=== PATIENT | male | born 1960 ===

== ENCOUNTER 2019-11-19 16:49 | Inpatient (IN) | payer MEDICAID ==
[~2019-11-19] VITALS: Ht 180.3 cm; Wt 78.6 kg
[2019-11-19 17:00] VITALS: BP 110/83
[2019-11-19] MEDS ORDERED: LISINOPRIL-HCT1 EAC7 PO (17:22)
[2019-11-19 18:00] VITALS: BP 120/92
--- NOTE | 2019-11-19 19:45 | NUR ---
Andrei CARRILLO APN ON UNIT SEEING PATIENT. ORDERS RECIEVED FOR PT TO HAVE A STAT CT WITHOUT CONTRAST OF ABDOMEN NOW AND THEN ORDERED A STAT CONSULT WITH SURGERY FOR CVL PLACEMENT. NOTIFIED MEDICAL IMAGING AND HAVE CALLED ANSWERING SERVICE FOR CONSULT TO SURGERY/DR PRESTON APPLIANCE TECHNICIAN.
--- NOTE | 2019-11-19 19:56 | NUR ---
REPORT GIVEN TO LEONARD IN ER. PT TO GO TO CT THEN WILL BE TAKEN FROM THERE TO ROOM 1863.
[2019-11-19 20:09] LABS: HEMATOCRIT 47.5 % (42.0-54.0); MCH 31.5 pg (26.0-34.0); MCHC 31.6 g/dL (31.0-37.0); MCV 99.8 fL (80.0-100.0); MEAN PLATELET VOLUME 10.8 fL (7.4-10.4); PLATELET COUNT 70 10x3/uL (130-400); RBC 4.76 10x6/uL (4.20-6.10); RDW 14.5 % (11.5-14.5); WBC 11.9 10x3/uL (4.8-10.8)
[2019-11-19 20:15] VITALS: BP 108/93; BMI 22.9
--- NOTE | 2019-11-19 20:15 | NUR ---
REC'D PATIENT FROM MED II/CT. A/O X 4. SHALLOW BREATHING. O2 AT 4 L VIA NC. INCREASED OXYGEN TO 5L VIA NC. DENIES ANY PAIN. F/C PRESENT. CALL LIGHT IN REACH.
[2019-11-19 20:17] LABS: APTT 30.5 SECONDS (22.8-39.4); INR 1.18 (0.85-1.17)
[2019-11-19 20:30] LABS: LYMPHOCYTES 14 % (15-50); MONOCYTES 3 % (2-11); NEUTROPHILS 71 % (40-80); PLATELET ESTIMATE DECREASED
[2019-11-19 20:41] LABS: ALBUMIN 2.7 g/dL (3.4-5.0); ALKALINE PHOSPHATASE 383 U/L (30-120); ALT (SGPT) 127 U/L (10-68); BILIRUBIN - DIRECT 2.29 mg/dL (0.00-0.30); BILIRUBIN - INDIRECT 0.51 mg/dL (0.00-1.00); CALC OSMOLALITY 278 mosm/kg (275-300); CALCIUM 8.7 mg/dL (8.5-10.1); CARBON DIOXIDE 35.2 mmol/L (21.0-32.0); CHLORIDE - SERUM 97 mmol/L (98-107); CREATININE - SERUM 0.7 mg/dL (0.6-1.3); GLUCOSE 111 mg/dL (74-106); MAGNESIUM - SERUM 1.8 mg/dL (1.8-2.4); PHOSPHOROUS 3.6 mg/dL (2.5-4.9); POTASSIUM - SERUM 5.4 mmol/L (3.5-5.1); PROTEIN - SERUM 6.2 g/dL (6.4-8.2); SODIUM 137 mmol/L (136-145); UREA NITROGEN 25 mg/dL (7-18); eGFR NON AFRICAN AMERICAN > 90 mL/min (90-120)
[2019-11-19 20:42] LABS: CREATINE KINASE 1581 UL (21-232)
[2019-11-19 20:44] LABS: CKMB 12.8 U/L (0.0-3.6)
[2019-11-19 21:00] VITALS: BP 116/86
[2019-11-19 21:07] LABS: BILIRUBIN NEGATIVE (NEGATIVE); GLUCOSE NEGATIVE (NEGATIVE); KETONE NEGATIVE (NEGATIVE); NITRITE NEGATIVE (NEGATIVE); UROBILINOGEN 8 mg/dL (NORMAL)
[2019-11-19 21:09] LABS: BACTERIA MODERATE /hpf (NEGATIVE); EPITHELIAL CELLS 0-5 /hpf (0-5)
[2019-11-19 21:14] LABS: UDS - AMPHET NEGATIVE QUAL (NEGATIVE); UDS - BARB NEGATIVE QUAL (NEGATIVE); UDS - BENZO NEGATIVE QUAL (NEGATIVE); UDS - COCAINE NEGATIVE QUAL (NEGATIVE); UDS - OPIATE POSITIVE QUAL (NEGATIVE); UDS - PCP NEGATIVE QUAL (NEGATIVE); UDS - THC NEGATIVE QUAL (NEGATIVE)
[2019-11-19 22:00] VITALS: BP 118/66
--- NOTE | 2019-11-19 22:00 | NUR ---
RIGHT UPPER ARM, 18G STARTED X 1 ATTEMPT.
[2019-11-19 23:00] VITALS: BP 102/92
--- NOTE | 2019-11-19 23:00 | NUR ---
RE-ASSESSMENT COMPLETED. NO CHANGES SINCE LAST ASSESSMENT
[2019-11-20] VITALS (22 sets, daily range): BP systolic 79–135; BP diastolic 13–114; Ht 180.3 cm; Wt 78.6 kg
--- NOTE | 2019-11-20 01:00 | NUR ---
INDEPENDENT WITH REPOSITIONING.
[2019-11-20 02:50] LABS: BASOPHILS 0.4 % (0-2); EOSINOPHILS 1.1 % (0-7); HEMATOCRIT 44.3 % (42.0-54.0); HEMOGLOBIN 13.7 g/dL (13.5-17.5); IMMATURE GRANULOCYTES 5.4 % (0-5); LYMPHOCYTES 15.4 % (15-50); MCH 31.1 pg (26.0-34.0); MCHC 30.9 g/dL (31.0-37.0); MCV 100.7 fL (80.0-100.0); MEAN PLATELET VOLUME 9.9 fL (7.4-10.4); MONOCYTES 7.4 % (2-11); NEUTROPHILS 70.3 % (40-80); PLATELET COUNT 71 10x3/uL (130-400); RDW 14.7 % (11.5-14.5)
--- NOTE | 2019-11-20 03:00 | NUR ---
RE-ASSESSMENT COMPLETED. STARTED HAVING AFIB WITH RVR AT 140-150
[2019-11-20 03:05] LABS: CALC OSMOLALITY 277 mosm/kg (275-300); CALCIUM 8.8 mg/dL (8.5-10.1); CARBON DIOXIDE 36.5 mmol/L (21.0-32.0); CHLORIDE - SERUM 97 mmol/L (98-107); CREATININE - SERUM 0.8 mg/dL (0.6-1.3); GLUCOSE 101 mg/dL (74-106); PHOSPHOROUS 3.8 mg/dL (2.5-4.9); POTASSIUM - SERUM 5.4 mmol/L (3.5-5.1); SODIUM 136 mmol/L (136-145); UREA NITROGEN 30 mg/dL (7-18); eGFR NON AFRICAN AMERICAN > 90 mL/min (90-120)
--- NOTE | 2019-11-20 03:45 | NUR ---
AROUND 0300 NOTED ECG AFIB WITH RVR IN 140-150. CALLED BRITNEY ANDRE WITH DR. PRIEST, ORDER FOR CARDIO CONSULT. CALLED [facility] AND [facility] GARCIA REC'D.
--- NOTE | 2019-11-20 05:00 | NUR ---
HEART RATE DOWN TO 120'S NOW
--- NOTE | 2019-11-20 07:25 | NUR ---
AWAKES TO VERBAL STIMULI, VERY SLEEPY RETURNS TO SLEEP WHEN NOT STIMULATED. SKIN WARM AND DRY. MONITOR ATRIAL FIB RATE 130'S. IV RIGHT UPPER ARM INFUSING WITH CORDARONE GTT AT 1 MG. IV RIGHT FOREARM SALINE LOCK. BUCK CATH PATENT DRAINING CLEAR BERE URINE. KNOW WHERE HE IS AND STATES HE IS HERE FOR HIS ABD. DENIES PAIN OR SHORTNESS OF BREATH. PULSE OX IN LOW 90'S OXYGEN AT 4 LITERS PER NC.
--- NOTE | 2019-11-20 09:34 | NUR ---
DR. POLLARD HERE TALKED WITH PATEINT. REFUSING BREAKFAST PO MEDS TAKEN WITHOUT DIFFICUTLY
--- NOTE | 2019-11-20 11:00 | NUR ---
SLEEPY, AWAKES TO VERBAL STIMULI. GOOD RESPONSE TO LASIX IV. MOUTH BREATHING. DR. ALBRECHT HERE.
[2019-11-20 12:51] LABS: CALC OSMOLALITY 279 mosm/kg (275-300); CALCIUM 8.9 mg/dL (8.5-10.1); CARBON DIOXIDE 35.3 mmol/L (21.0-32.0); CHLORIDE - SERUM 96 mmol/L (98-107); CREATININE - SERUM 0.9 mg/dL (0.6-1.3); GLUCOSE 135 mg/dL (74-106); POTASSIUM - SERUM 5.1 mmol/L (3.5-5.1); SODIUM 135 mmol/L (136-145); UREA NITROGEN 36 mg/dL (7-18); eGFR NON AFRICAN AMERICAN > 90 mL/min (90-120)
--- NOTE | 2019-11-20 13:00 | NUR ---
RESTING COMFORTABLY NO DISTRESS. AWAKES EASILY, RETURNS TO SLEEP. MONITOR ATRIAL FIB RATE 120.
--- NOTE | 2019-11-20 14:25 | NUR ---
TO CT SCAN PER WHEEL CHAIR. WITH PORTABLE OXYGEN
--- NOTE | 2019-11-20 15:13 | NUR ---
RETURNED TO ROOM. LUNCH TRAY SERVED. SITTING ON SIDE OF BED EATING. UNSTEADY GAIT NOTED TRANSFERING FROM WHEEL CHAIR TO BED. FEEDING SELF
--- NOTE | 2019-11-20 16:02 | NUR ---
ATE 100% OF TRAY. RESTING IN BED NO DISTRESS
--- NOTE | 2019-11-20 19:00 | NUR ---
ASSESSMENT COMPLETED. SITTING UP ON SIDE OF BED. DENIES ANY NEEDS. EATING DINNER
--- NOTE | 2019-11-20 21:00 | NUR ---
INDEPENDENT WITH REPOSITIONING. DENIES ANY NEEDS
--- NOTE | 2019-11-20 23:00 | NUR ---
RE-ASSESSMENT COMPLETED. NO CHANGES SINCE LAST ASSESSMENT. CHG BATH GIVEN WITH COMPLETE LINEN CHANGE
[2019-11-21] VITALS (24 sets, daily range): BP systolic 102–136; BP diastolic 80–104
--- NOTE | 2019-11-21 01:00 | NUR ---
EYES CLOSED, BREATHING VIA MOUTH. WILL DESAT UNTIL REMINDED TO BREATHE THROUGH THE NOSE. C/O BACK PAIN, CHRONIC AND TAKES HYDROCODONE AT HOME. NO ORDER FOR ONE NOW. PLACED HEATED BLANKET FLAT ON BACK AND PATIENT STATED IT HELPED
--- NOTE | 2019-11-21 03:00 | NUR ---
EYES CLOSED. WAKES WITH TOUCH. BREATHING THROUGH MOUTH. STATES BACK PAIN IS SO MUCH BETTER
[2019-11-21 03:39] LABS: BASOPHILS 0.6 % (0-2); EOSINOPHILS 0.8 % (0-7); HEMATOCRIT 43.3 % (42.0-54.0); HEMOGLOBIN 13.3 g/dL (13.5-17.5); IMMATURE GRANULOCYTES 5.4 % (0-5); LYMPHOCYTES 21.9 % (15-50); MCH 30.6 pg (26.0-34.0); MCHC 30.7 g/dL (31.0-37.0); MCV 99.5 fL (80.0-100.0); MEAN PLATELET VOLUME 10.5 fL (7.4-10.4); MONOCYTES 5.9 % (2-11); NEUTROPHILS 65.4 % (40-80); PLATELET COUNT 76 10x3/uL (130-400); RBC 4.35 10x6/uL (4.20-6.10); RDW 14.5 % (11.5-14.5); WBC 12.3 10x3/uL (4.8-10.8)
[2019-11-21 04:07] LABS: PLATELET ESTIMATE DECREASED
--- NOTE | 2019-11-21 04:13 | NUR ---
REC'D CRITICAL OF AMMONIA 85 AND PCO2 OF 74.8. LEFT MESSAGE FOR DR. ROSS. WAITING RETURN CALL
[2019-11-21 04:24] LABS: INR 1.24 (0.85-1.17); PROTIME 15.5 SECONDS (11.6-15.0)
[2019-11-21 04:31] LABS: C-REACTIVE PROTEIN 10.9 mg/dL (0.0-0.9); CALC OSMOLALITY 276 mosm/kg (275-300); CARBON DIOXIDE 34.9 mmol/L (21.0-32.0); CHLORIDE - SERUM 98 mmol/L (98-107); CKMB 3.2 U/L (0.0-3.6); CREATINE KINASE 565 UL (21-232); CREATININE - SERUM 0.8 mg/dL (0.6-1.3); FERRITIN 10353 ng/mL (3-244); GLUCOSE 125 mg/dL (74-106); MAGNESIUM - SERUM 2.3 mg/dL (1.8-2.4); PHOSPHOROUS 2.2 mg/dL (2.5-4.9); POTASSIUM - SERUM 4.8 mmol/L (3.5-5.1); SODIUM 134 mmol/L (136-145); UREA NITROGEN 36 mg/dL (7-18); eGFR NON AFRICAN AMERICAN > 90 mL/min (90-120)
--- NOTE | 2019-11-21 04:39 | NUR ---
CALLED DR. ROSS FOR CRITICAL LAB. NO NEW ORDERS AT THIS TIME, RESPONSE WAS "OK, THANKS."
--- NOTE | 2019-11-21 06:54 | NUR ---
PATIENT DESAT TO 69%. GOT MARCO RT. PUT O2 AT 9L VIA HIGH FLOW NC. SAT CAME UP TO HIGH 90%. SITTING UP ON SIDE OF BED.
--- NOTE | 2019-11-21 07:30 | NUR ---
awakes with stimulation, knows where he is. iv right arm x 2 without redness or swelling. solo cath patent draining dark clear kevin urine. denies pain. sleepy returns to sleep when not stimulated. monitor atrial fib/flutter rate 120's.answers questions appriopiately. oximizer at 9 liters per nc. head of bed elevated 30 degrees.
--- NOTE | 2019-11-21 08:00 | NUR ---
patient upset he is npo, wants water to drink does care about any possible procedures. taking oxygen off, had to talk to patient about how bad he needs it.
--- NOTE | 2019-11-21 10:00 | NUR ---
tried to wean oxygen to 8 liters. patient pulse ox dropped into 70's. turn oxygen up to 10 liters. incentive spirometry done not able to get above 500ml, flutter valve attempted. resp therapy notified.
--- NOTE | 2019-11-21 11:00 | NUR ---
resting comfortably no distress
--- NOTE | 2019-11-21 12:00 | NUR ---
sitting on side of bed eating a regular diet.
--- NOTE | 2019-11-21 13:18 | NUR ---
ate well 75% of meal. feeds self. pleasant at moment. dr. herrera here. good urine output from lasix. monitor atrial fib flutter rate in 120's. oxygen at 10 liters.
--- NOTE | 2019-11-21 13:29 | NUR ---
daughter called update given. states to call her if patient is uncooperative,she will talk to him.
--- NOTE | 2019-11-21 14:34 | NUR ---
up on bedside. standing to relieve back discomfort. incentive spirometry done up to 750 ml.
--- NOTE | 2019-11-21 15:31 | NUR ---
DR. ROSS NOTIFIED OF D DIMER RESULTS. NO NEW ORDERS
--- NOTE | 2019-11-21 16:57 | NUR ---
DINNER TRAY SET UP AND SERVED. PATIENT TALKED WITH DAUGHTER ON HIS CELL PHONE. STATES TO LEAVE TRAY HE WILL EAT LATER. RESTING IN BED. HEAD OF BED ELEVATED 30 DEGREES. DRANK ALL OF MAG CIT[place].
--- NOTE | 2019-11-21 17:36 | NUR ---
DR. MAYNARD HERE TO SEE PATIENT.
--- NOTE | 2019-11-21 19:50 | NUR ---
LYING IN BED. HOB ELEVATED. ALERT AND ORIENTED X3. CONFUSED TO SITUATION. LETHARGIC BUT ABLE TO VOICE NEEDS. RESP IRREG, LABORED. O2 @ 10L/HFC. PROD COUGH WITH YELLOW SPUTUM NOTED. NS @ 5 MLHR INFUSING IN RT FOREARM. AMIODARONE DRIP INFUSING @ 16.7 ML/HR INFUSING IN RT UPPER ARM. TELEMTRY SHOWS AFIB WITH RATE OF 118. SCDS IN USE BILAT. EDEMA NOTED TO BLE. BUCK CATH PATENT AND DRAINING BERE URINE. DENIES NEEDS. SR ELVATED. CL IN REACH.
--- NOTE | 2019-11-21 21:45 | NUR ---
PLACED ON BIPAP PER RT. BIPAP @ 40% O2. HOB ELEVATED. CL IN REACH.
--- NOTE | 2019-11-21 23:16 | NUR ---
PULLED BIPAP OFF. REFUSING TO WEAR IT. EXPLAINED POSSIBILITY OF WORSENING CONDITION FROM NOT WEARING BIPAP. PLACED BACK ON O2 @ 10L/HFC. HOB ELEVATED. CL IN REACH.
--- NOTE | 2019-11-21 23:35 | NUR ---
REQUESTING TO PUT BIPAP BACK ON. BIPAP PLACED BACK ON PT. CL IN REACH.
[2019-11-22] VITALS (26 sets, daily range): BP systolic 103–139; BP diastolic 74–111
--- NOTE | 2019-11-22 01:00 | NUR ---
TOOK BIPAP OFF TO DRINK WATER. PT SAO2 DROPPED TO 83% IN THAT TIME. PLACED BACK ON BIPAP. SAO2 BACK UP TO 93%. CL IN REACH.
--- NOTE | 2019-11-22 02:30 | NUR ---
TOOK BIPAP OFF. WANTING WATER. WATER GIVEN AT THIS TIME. ATTEMPTED TO EXPLAIN WHY HE NEEDS TO STAY ON BIPAP BUT PT IS NOT RECEPTIVE TO LEARNING. BIPAP PLACED BACK ON PT. V/S STABLE. NO DISTRESS. CL IN REACH.
[2019-11-22 04:04] LABS: HEMATOCRIT 45.3 % (42.0-54.0); HEMOGLOBIN 13.9 g/dL (13.5-17.5); MCHC 30.7 g/dL (31.0-37.0); MCV 100.9 fL (80.0-100.0); MEAN PLATELET VOLUME 10.3 fL (7.4-10.4); PLATELET COUNT 75 10x3/uL (130-400); RBC 4.49 10x6/uL (4.20-6.10); RDW 14.9 % (11.5-14.5); WBC 11.6 10x3/uL (4.8-10.8)
[2019-11-22 04:09] LABS: APTT 30.8 SECONDS (22.8-39.4); INR 1.27 (0.85-1.17); PROTIME 15.8 SECONDS (11.6-15.0)
[2019-11-22 04:11] LABS: ANION GAP 2.3 mmol/L (8-16); CALCIUM 8.2 mg/dL (8.5-10.1); CARBON DIOXIDE 39.7 mmol/L (21.0-32.0); MAGNESIUM - SERUM 2.8 mg/dL (1.8-2.4)
[2019-11-22 04:13] LABS: CREATININE - SERUM 1.1 mg/dL (0.6-1.3)
--- NOTE | 2019-11-22 04:49 | NUR ---
RESTING WITH EYES CLOSED. BIPAP IN USE. NO DISTRESS. JUST NOW FALLING ASLEEP AFTER BEING UP ALL NIGHT. CL IN REACH. TELEMETRY SHOWS AFIB WITH UNCONTROLLED RATE OF 116. AMIODARONE DRIP INFUSING @ 16.7 MLHR.
--- NOTE | 2019-11-22 05:53 | NUR ---
LYING IN BED WITH BIPAP IN USE BUT PULLS MASK OFF FREQUENTLY TO DRINK WATER. IRRITABLE AND UNCOOPERATIVE AT TIMES. CL IN REACH. NO ACUTE DISTRESS.
--- NOTE | 2019-11-22 06:36 | NUR ---
AGITATED. CURSING NURSE. STATES, "I'M GOING TO THE [facility]. PUT THIS RAIL DOWN." PT TOOK BIPAP OFF. BIPAP PLACED BACK ON PT. ATTEMPTED TO EXPLAIN AGAIN WHY HE NEEDS TO WEAR IT AND THAT HE IS IN ICU BUT PT IS NOT RECEPTIVE TO LEARNING OR COOPERATING. BED ALARM ON FOR PT SAFETY.
[2019-11-22 07:18] LABS: LYMPHOCYTES 20 % (15-50); MONOCYTES 7 % (2-11); NEUTROPHILS 57 % (40-80); PLATELET ESTIMATE DECREASED
--- NOTE | 2019-11-22 09:57 | CN ---
PATIENT NAME:LANRE HUYNH MEDICAL RECORD: [id number] : 60 LOCATION:[id number] ADMIT DATE: 11/19/19 ACCOUNT: [id number] CONSULTING PHYSICIAN: LAWRENCE POLLARD MD REFERRING PHYSICIAN: JANIE PRIEST MD DATE OF CONSULTATION: 11/20/2019 HISTORY OF PRESENT ILLNESS: This is a 59-year-old gentleman transferred from [place] with a history of obstructive pulmonary disease, hypertension, admitted with about a 6 to 7 day history of progressive dyspnea on exertion, chest pain, shortness of breath. He by family report, he has been drinking heavily up until the last few days. No known history of atrial fibrillation by his report. We are asked to see him concerning his cardiovascular status. PAST MEDICAL HISTORY: Otherwise includes; 1. History of hypertension. 2. Obstructive pulmonary disease. MEDICATIONS: Include aspirin 81 every day, lisinopril 10/12.5 every day. ALLERGIES: Unknown. SOCIAL HISTORY: Lives in [place], smokes less than a pack a day, drinks heavily at times. Is able to take care of all his ADLs. REVIEW OF SYSTEMS: The patient reports easy bruising but reports no swollen glands. The patient reports no fever, no night sweats, no significant weight gain, no significant weight loss. No significant exercise tolerance. The patient reports no dry eyes, no irritation, no vision change. Patient reports no difficulty hearing and no ear pain. Patient reports no frequent nose bleeds or nose and sinus problems. Patient reports on arm pain on exertion. No shortness of breath while lying down. No history of heart murmur. Patient reports no cough, no wheezing or coughing up blood. Patient reports no abdominal pain, no vomiting. Normal appetite. No diarrhea and not vomiting blood. No nausea and no constipation. Patient reports no incontinence. No difficulty urinating. No hematuria. No increased frequency. Patient reports no muscle aches. No weakness, no arthralgias, no back pain. No swelling of the extremities. Patient reports no abnormal mole, no jaundice, no rashes. Reports no loss of consciousness. No weakness and no numbness. No seizures, dizziness, or headaches. The patient reports no depression, no sleep disturbance, feeling safe in a relationship. Patient reports on fatigue. Reports no runny nose or sinus pressure. No itching, no hives, and no frequent sneezing. PHYSICAL EXAMINATION: GENERAL: A middle-aged gentleman in no acute distress. VITAL SIGNS: Blood pressure 112/81, pulse 126, currently regular. HEENT: Normocephalic, atraumatic. NECK: No bruits noted. HEART: Regular, II/ systolic ejection murmur. LUNGS: Fair air excursion, few expiratory wheezes. ABDOMEN: Soft, nontender. EXTREMITIES: Pulses 2+ with no edema. DIAGNOSTIC DATA: EKG shows anterior ST-T segment changes. CONSULT REPORT [id number] LANRE HUYNH IMPRESSION AND PLAN: Atrial fibrillation intermittently, certainly could be a component of holiday heart and exacerbation of obstructive pulmonary disease. Given his symptomatology and abnormal ECG, we will check echocardiographic study, will need ischemic workup at some point. TRANSINT:[id number] Voice Confirmation ID: [id number] DOCUMENT ID: [id number] LAWRENCE POLLARD MD at 0957 CC: [id number] DICTATION DATE: 11/20/19 1006 RADIATION SAFETY OFFICER: 11/20/19 1309 ADM IN [facility] [address] [place] [address]
--- NOTE | 2019-11-22 09:57 | EC ---
PATIENT:LANRE HUYNH DATE OF SERVICE: 11/19/19 SEX: M MEDICAL RECORD: [id number] DATE OF : 60 LOCATION:[facility] AGE OF PATIENT: 59 ADMISSION DATE: 11/19/19 REFERRING PHYSICIAN: INTERPRETING PHYSICIAN: LAWRENCE POLLARD MD ECHOCARDIOGRAM REPORT ECHO CHARGES 4 ECHO COMPLETE Date: 11/20/19 CLINICAL DIAGNOSIS: CARDIOMEGALY/ELEVATED PRO-BNP/ TACHYCARDIA ECHOCARDIOGRAPHIC MEASUREMENTS (adult normal given) AC root (d.<3.7cm) 3.5 cm LV Septum d (<1.2 cm> 1.3 cm Valve Excursion 1.8 cm LV Septum (systole) 1.6 cm Left Atria (s.<4.0cm> 2.7 cm LVPW d(<1.2cm) 1.2 cm RV (d.<2.3cm) 4.6 cm LVPW (sytole) 1.5 cm LV diastole(<5.6CM) 4.7 cm MV E-F(>70mm/sec) cm LV systole 3.2 cm LVOT Diameter 2.3 cm MV exc.(>10mm) cm Est.ejection fraction (50-75%) % DOPPLER: LVIT cm/sec A 25.0 cm/sec E 80.0 cm/sec LA cm/sec RVSP 56.0 mmHg LVOT 57.0 cm/sec AOP1/2T m/s Asc. Ao 167 cm/sec RVOT 51.0 cm/sec RA cm/sec PA 80.0 cm/sec AV Gradient Peak 11.2 mmHg AV Mean 5.6 mmHg AV Area 1.6 cm MV Gradient Peak 3.0 mmHg MV Mean 1.2 mmHg MV Area cm COMMENTS: Program Evaluation Consultant: 1 MELLISA ADAM Office Executive: 3 Dr. Perdue TAPE# PACS Pericardial Effusion N DATE OF SERVICE: Adequate 2D, color flow imaging, spectral Doppler, and M-Mode. Borderline LVH. LV internal dimensions are normal. LV is globally hypokinetic with reduced EF, estimated EF 20% to 25%. Aortic valve is sclerosis without stenosis by Doppler interrogation. Left atrium is normal at 3.7 cm. Mitral valve shows no prolapse. Trace MR. Right-sided cardiac chambers appear upper limits of normal, mildly dilated. Moderate to severe TR with color flow imaging. ECHOCARDIOGRAM REPORT [id number] LANRE HUYNH TRANSINT:[id number] Voice Confirmation ID: [id number] DOCUMENT ID: [id number] LAWRENCE POLLARD MD at 0957 CC: [id number] DICTATION DATE: 11/21/1958 BELL VALET: 11/21/19 1316 ADM IN [place] [id number] [place] [id number]
--- NOTE | 2019-11-22 10:37 | NUR ---
PT TAKEN TO CT FOR THORACENTESIS.
--- NOTE | 2019-11-22 11:29 | NUR ---
PT BACK FROM SPECIALS. 300ML DRAINED DURING PARACENTESIS.
--- NOTE | 2019-11-22 11:55 | NUR ---
Nutrition follow-up: PT has been NPO for paracentesis PO intake has good at some meals; pt aggitated per nursing Labs reviewed BIPAP in use at times Will continue to provide food choices and honor food preferences. RDN following.
[2019-11-22 12:12] LABS: MACROPHAGES BF 20 %; NEUT - BF 19 %
--- NOTE | 2019-11-22 13:03 | NUR ---
ABG OBTAINED. PT BEING PLACED BACK ON BIPAP PER RT.
--- NOTE | 2019-11-22 15:28 | NUR ---
PT CONTINUES TO PULL BIPAP OFF AFTER EXPLAINING TO PT MULTIPLE TIMES THE NEED FOR IT. PT AGITATED AND CONFUSED. SOFT WRIST RESTRAINTS APPLIED TO PABLO WRISTS. VSS. WILL CONTINUE TO MONITOR. BIPAP IN PLACE AT 40%.
--- NOTE | 2019-11-22 19:00 | NUR ---
PATIENT RESTING IN BED WITH EYES CLOSED AND NO S/S OF DISTRESS. PATIENT ON BIPAP. BED IN LOWEST POSITION AND CALL LIGHT WITHIN REACH. WILL CONTINUE TO MONITOR.
--- NOTE | 2019-11-22 21:00 | NUR ---
ASSISTED PATIENT REPOSITIONING IN BED AND REMOVED RESTRAINTS. PATIENT REQUESTED HIS LEFT ARM NOT BE PLACED IN RESTRAINTS. PATIENT AGREED TO LEAVE BIPAP ON. I EXPLAINED TO THE PATIENT THAT IF HE REMOVES HIS BIPAP HIS RESTAINTS WOULD NEED TO BE PLACED TO LEFT ARM AGAIN. PATIENT VERBALIZED UNDERSTANDING. BED IN LOWEST POSITION AND CALL LIGHT WITHIN REACH. WILL CONTINUE TO MONITOR. ENCOURAGED PATIENT TO CALL IF HE HAS NEEDS.
--- NOTE | 2019-11-22 23:20 | NUR ---
REPORT RECIEVED AND ROUNDING COMPLETE. PATIENT LAYING IN BED IN HIGH FOWLERS, WEARING BIPAP AT TIME, DAY NURSE KANNAN RN STATES PATIENT RESTRAINT WERE TAKEN OFF AND PATIENT HAS KEPT BIPAP ON WITH NO PROBLEM WILL MONITOR FOR THIS. PATIENT HAS A RIGHT UPPER ARM PIV THAT IS PATENT AND RUNNING FLUIDS AT THIS TIME. NO S/SX OF DISTRESS AT THIS TIME. CALL LIGHT WITHIN REACH AND BED IN LOWEST LOCKED POSITION.
[2019-11-23] VITALS (23 sets, daily range): BP systolic 117–139; BP diastolic 87–112
--- NOTE | 2019-11-23 00:30 | NUR ---
FLACA FISCHER APN TO MAKE AWARE OF PATIENT'S HIGH BP, WILL FOLLOW NEW ORDERS PUT IN.
--- NOTE | 2019-11-23 02:30 | NUR ---
PAGED AMADO CEBALLOS TO ADVISE ON PATIENT'S BP, NO NEW ORDERS AT THIS TIME.
[2019-11-23 03:26] LABS: BASOPHILS 2.1 % (0-2); EOSINOPHILS 0.7 % (0-7); HEMATOCRIT 45.6 % (42.0-54.0); HEMOGLOBIN 13.9 g/dL (13.5-17.5); IMMATURE GRANULOCYTES 5.7 % (0-5); LYMPHOCYTES 30.5 % (15-50); MCH 30.7 pg (26.0-34.0); MCHC 30.5 g/dL (31.0-37.0); MCV 100.7 fL (80.0-100.0); MEAN PLATELET VOLUME 10.5 fL (7.4-10.4); MONOCYTES 7.1 % (2-11); NEUTROPHILS 53.9 % (40-80); PLATELET COUNT 66 10x3/uL (130-400); RBC 4.53 10x6/uL (4.20-6.10); RDW 15.1 % (11.5-14.5); WBC 13.2 10x3/uL (4.8-10.8)
[2019-11-23 04:03] LABS: CALC OSMOLALITY 285 mosm/kg (275-300); CALCIUM 8.3 mg/dL (8.5-10.1); CARBON DIOXIDE 36.3 mmol/L (21.0-32.0); CHLORIDE - SERUM 98 mmol/L (98-107); CREATININE - SERUM 0.9 mg/dL (0.6-1.3); GLUCOSE 122 mg/dL (74-106); MAGNESIUM - SERUM 3.1 mg/dL (1.8-2.4); PHOSPHOROUS 2.6 mg/dL (2.5-4.9); POTASSIUM - SERUM 5.1 mmol/L (3.5-5.1); SODIUM 137 mmol/L (136-145); UREA NITROGEN 43 mg/dL (7-18); eGFR NON AFRICAN AMERICAN > 90 mL/min (90-120)
--- NOTE | 2019-11-23 04:32 | NUR ---
PATIENT REFUSED BATH THIS MORNING HE STATES THAT WHEN HE CAN TAKE HIS BIPAP OFF HE WILL SHOWER. PATIENT HAS DONE WELL WITH LEAVING HIS BIPAP ON, ONLY TRYING TO TAKE IT OFF WHEN HE WANTS SOMETHING TO DRINK. CALL LIGHT WITHIN REACH AND BED IN LOWEST LOCKED POSITION.
--- NOTE | 2019-11-23 05:57 | NUR ---
PATIENT LAYING IN BED IN HIGH FOLWERS, BIPAP ON AND EYS CLOSED, NO DISTRESS NOTED, CALL LIGHT WITHIN REACH AND BED IN LOWEST LOCKED POSITION.
--- NOTE | 2019-11-23 07:00 | NUR ---
SHIFT REPORT RECEIVED PT RESTING COMFOTABLY, ON BIPAP AT THIS TIME. SHIFT ASSESSMENT COMPLETED SEE FLOWSHEET. PATIENT IS NOT RESTRAINED AT THIS TIME. BED AT LOWEST SETTING BED RAIL X2 - CLIR - VSS CPOC
[2019-11-23 07:10] LABS: CEA 14.8 ng/mL (0.0-4.7)
--- NOTE | 2019-11-23 08:30 | NUR ---
DR ADAM AT BEDSIDE, ABG AND EKG ORDERED AT THIS TIME. PATIENT PLACED ON NC 9L FOR AM MEDS. TOLERATING NC WELL. WILL CONTINUE TO CLOSELY MONITOR
--- NOTE | 2019-11-23 09:13 | NUR ---
RESULTS OF ABGS GIVEN TO CODEY ADAM WITH ORDERS TO WEAR BIPAP ON 4 HOURS AND OFF BIPAP AND ALL NIGHT EACH NIGHT
--- NOTE | 2019-11-23 11:15 | NUR ---
REASSESSMENT COMPLETED SEE FLOWSHEET
[2019-11-23 12:08] LABS: HEPATITIS C ANTIBODY 0.2 S/CO RAT (0.0-0.9)
--- NOTE | 2019-11-23 12:09 | NUR ---
DR ROSS AT BEDSIDE AND AWARE OF SEDATION STATUS
--- NOTE | 2019-11-23 13:56 | NUR ---
RT AT BEDSIDE, BIPAP PLACED BACK ON PATIENT - PATIENT STILL LETHARGIC, AROUSES TO VOICE, FOLLOWS COMMANDS, SLURRED SPEECH, SHALLOW RESPIRATIONS, VSS CPOC
--- NOTE | 2019-11-23 14:27 | NUR ---
PT RESTING COMFORTABLY ALL IV TUBING CHANGED PER POLICY VSS CPOC
--- NOTE | 2019-11-23 14:32 | NUR ---
REASSESSMENT COMPLETED SEE FLOWSHEET
--- NOTE | 2019-11-23 17:16 | MORECARE ---
CASE MANAGEMENT DISCHARGE SUMMARY PATIENT: LANRE HUYNH UNIT: [id number] ADM DATE: 11/19/19 AGE: 59 : 60 SEX: M ROOM/BED: D.2309 AUTHOR: ALLEN BRYANT PHYSICIAN: REFERRING PHYSICIAN: JANIE PRIEST MD DATE OF SERVICE: 11/23/19 Discharge Plan Patient Name: LANRE HUYNH [facility] [facility] 1960 Planned Disposition: Home Anticipated Discharge Date: Discharge Date: Expected LOS: Initial Reviewer: [email or web address] Initial Review Date: 11/23/2019 Generated: 11/23/19 6:16 pm Patient Name: LANRE HUYNH Page [id number] at 1716 All edits/amendments must be made on the electronic document DICTATION DATE: 11/23/191715 OXIDATION OPERATOR: PATO 11/23/191715 RPT#: [id number] DC DATE: STATUS: ADM IN [facility] [address] [place] [address] END OF REPORT
--- NOTE | 2019-11-23 17:27 | MORECARE ---
CASE MANAGEMENT DISCHARGE SUMMARY PATIENT: LANRE DINH UNIT: [id number] ADM DATE: 11/19/19 AGE: 59 : 60 SEX: M ROOM/BED: D.2309 AUTHOR: MANNY,DOC PHYSICIAN: REFERRING PHYSICIAN: JANIE PRIEST MD DATE OF SERVICE: 11/23/19 Discharge Plan Patient Name: LANRE DINH Facility: [facility]:[place] : 1960 Planned Disposition: Home Anticipated Discharge Date: Discharge Date: Expected LOS: Initial Reviewer: [email or web address] Initial Review Date: 11/23/2019 Generated: 11/23/19 6:27 pm Comments DCP- Discharge Planning Updated by [email or web address]: Polina Mcgrath on 11/23/19 4:[address] Patient Name: LANRE DINH Admission Status: ER Accout number: [id number] Admission Date: 11-19-2019 : 1960 Admission Diagnosis:PNEUMONIA, UNSPECIFIED ORGANISM Attending: CEM, Current LOS: 4 Anticipated DC Date: Planned Disposition: Home Primary Insurance: MEDICAID [place] Discharge Planning Comments: CM called and spoke with patient's daughter to complete initial dc planning assessment. CM educated patient's daughter on the CM role and verbal consent given by patient to complete assessment. Patient lived at home with family where he was independent with his care. At discharge patient's daughter plans on him discharging to her home. ([address] [place] [address] [place] [address]) CM discussed availability of home health, rehab services, and medical equipment. He has been using home 02 concentrator (unknown if it was his or someone else's).He has a nebulizer that he was taking albuterol updrafts more often than ordered per daughter. SHIRIN for no preference on Home health company if needed. [facility] medical equipment. for 02 needs. He will need walk test if 02 is required at discharge. Patient's daughter denied known discharge needs at this time. CM will continue to follow and will assist as needed with dc plans/needs. Special Education Supervisor: Polina Mcgrath DCPIA - Discharge Planning Initial Assessment Updated by [email or web address]: Polina Mcgrath on 11/23/19 5:19 pm * PCP AMINAH BRADY * Pharmacy [facility] - * Preadmission Environment Home with Family * ADLs Independent * Other Equipment 02 concentrator, nebulizer * List name and contact numbers for known caregivers / representatives who currently or will assist patient after discharge: Marilin Iniguez -daughter POA - [phone] Shirin Dinh - son - [phone] * Verbal permission to speak to the caregivers and representatives has been obtained from the patient. N/A * Community resources currently utilized None * Additional services required to return to the preadmission environment? No * Can the patient safely return to the preadmission environment? Yes * Has this patient been hospitalized within the prior 30 days at any hospital? No Last DP export: 11/23/19 4:16 p Patient Name: LANRE DINH Page [id number] at 1727 All edits/amendments must be made on the electronic document DICTATION DATE: 11/23/191726 DENTAL SERVICES DIRECTOR: PATO 11/23/191726 RPT#: [id number] DC DATE: STATUS: ADM IN [facility] [address] [place] [address] END OF REPORT
--- NOTE | 2019-11-23 17:46 | NUR ---
PT ON 9L NC - STILL LETHARGIC BUT ABLE TO FOLLOW COMMANDS, VSS CPOC
--- NOTE | 2019-11-23 19:00 | NUR ---
HEAD TO TOE ASSESSMENT COMPLETED. PATIENT SOMULENT. AWAKES MOMENTS DURING STUMULATION. UNABLE TO ANSWER QUESTIONS WITHOUT DRIFTING BACK TO SLEEP. VSS. AWARE. WILL CONTINUE TO MONITOR.
--- NOTE | 2019-11-23 21:00 | NUR ---
REPOSTIONED FOR COMFORT. DAUGHTER CALLED FOR UPDATE. PROVIDED UPDATED AND ANSWERED QUESTIONS. FAMILY TO BRING IN PT PERSONAL PHONE SO PT CAN COMMUNICATE WITH FAMILY. PT CONTINUES TO BE LETHARGIC. PT ABLE TO TAKE PO MEDICATION WITHOUT ANY S/S OF ASPIRATION. PROVIDED SIPS OF WATER.
--- NOTE | 2019-11-23 22:00 | NUR ---
PT O2 AT 77-85%. APPLIED BIPAP AT 40%. O2 TOOK 5 MINITES TO RECOVER. WILL CONTINUE TO MONITOR.
--- NOTE | 2019-11-23 23:00 | NUR ---
HEAD TO TOE ASSEMENT COMPLETED. REPOSITIONED.
[2019-11-24] VITALS (22 sets, daily range): BP systolic 109–145; BP diastolic 73–130
--- NOTE | 2019-11-24 01:00 | NUR ---
REPOSITIONED FOR COMFORT. PT RESTING WITH EYES CLOSED. DENIES ANY NEEDS AT THIS TIME.
--- NOTE | 2019-11-24 03:00 | NUR ---
HEAD TO TOE ASSESSMENT COMPLETED. RESPOSITIONED FOR COMFORT.
[2019-11-24 04:05] LABS: HEMATOCRIT 41.5 % (42.0-54.0); HEMOGLOBIN 12.8 g/dL (13.5-17.5); MCH 30.8 pg (26.0-34.0); MCHC 30.8 g/dL (31.0-37.0); MCV 99.8 fL (80.0-100.0); MEAN PLATELET VOLUME 10.5 fL (7.4-10.4); PLATELET COUNT 65 10x3/uL (130-400); RBC 4.16 10x6/uL (4.20-6.10); RDW 15.1 % (11.5-14.5); WBC 9.2 10x3/uL (4.8-10.8)
[2019-11-24 04:16] LABS: CALC OSMOLALITY 283 mosm/kg (275-300); CARBON DIOXIDE 38.5 mmol/L (21.0-32.0); CHLORIDE - SERUM 98 mmol/L (98-107); CREATININE - SERUM 0.7 mg/dL (0.6-1.3); GLUCOSE 119 mg/dL (74-106); MAGNESIUM - SERUM 2.7 mg/dL (1.8-2.4); PHOSPHOROUS 2.1 mg/dL (2.5-4.9); POTASSIUM - SERUM 4.5 mmol/L (3.5-5.1); SODIUM 137 mmol/L (136-145); UREA NITROGEN 38 mg/dL (7-18); eGFR NON AFRICAN AMERICAN > 90 mL/min (90-120)
[2019-11-24 04:41] LABS: LYMPHOCYTES 40 % (15-50); MONOCYTES 1 % (2-11); NEUTROPHILS 52 % (40-80); PLATELET ESTIMATE DECREASED
--- NOTE | 2019-11-24 05:00 | NUR ---
REPOSITIONED FOR COMFORT. PT DENIES ANY NEEDS AT THIS TIME.
--- NOTE | 2019-11-24 09:20 | NUR ---
Nutrition follow-up: Diet advanced to regular with po intake ~25% of meals Labs reviewed WT: 180# Pt on BIPAP, 4 hours on/4 hours off +BM Will provide food choices and honor food preferences. Will offer nutritional supplements RDN following.
--- NOTE | 2019-11-24 12:05 | NUR ---
CONTACTED PT FAMILY ABOUT FURTHER CARE DIRECTED BY . FAMILY WILL COME TO A CONCULSION AND NOTIFY ME. PT IS ON BIPAP AND NOT GETTING ANY BETTER.
[2019-11-24 14:08] LABS: PROCALCITONIN 5.75 ng/mL (0.00-0.08)
--- NOTE | 2019-11-24 19:30 | NUR ---
HOSPICE NURSE AT THE PTS BEDSIDE. PT ALERT AND ORIENTED. PT STATES THAT HE DOES NOT WANT TO BE ON THE VENTILATOR. PTS SISTER CALLED AND PROVIDED THE PASSWORD. SHE WAS UPDATED THAT THE PT IS A DNR AND DNI PER THE PATIENTS WISHES. SHE SPOKE WITH THE PATIENT AND THE SISTER STATED THAT HE IS OK TO BE PUT ON THE VENTILATOR. PER THE DAY SHIFT, THEY SPOKE WITH JESSICA CHEUNG AND MADE THE DNR DNI STATUS. I THEN CALLED JESSICA AND SHE SAID IT IS WHAT EVER THE PT WANTS. I SPOKE WITH THE PATIENT IN LENGTH ABOUT BEING PLACED ON THE VENTILATOR AND BEING MADE A FULL CODE STATUS. THE PATIENT UNDERSTOOD COMPLETLY. THE PT HAS EVEN AND UNLABORED RESPIRATION AT THIS TIME. I ASKED IF HE WAS OK WITH BEING PLACED ON THE BIPAP FOR NOW AND HE AGREED.
--- NOTE | 2019-11-24 22:40 | NUR ---
AMADO IN THE UNIT AND UPDATE WITH THE CODE STATUS CHANGE AND THE PATIENT IS OK TO BE INTUBATED IF NEEDED. OBTAIN ABG.
--- NOTE | 2019-11-24 23:00 | NUR ---
PT CALM AND COOPERATIVE. PT WEARING BIPAP. VSS. WILLC ONT POC.
--- NOTE | 2019-11-24 23:01 | NUR ---
AMAOD CEBALLOS IN THE UNIT AND MADE AWARE OF THE CONVERSATION I HAD WITH THE SISTER, DAUGHTER AND THE PT. I WAS PRESENT WITH AMADO CEBALLOS AND THE PT IS STILL A&O AND ABLE TO MAKE HIS DECISIONS. PT STATES THAT HE NOW WISHS TO REMAIN A DNR AND DOES NOT WISH TO BE INTUBATED. PT CODE STATUS WILL REMAIN A DNR AND DNI PER THE PATIENTS WISHES. JESSICA CHEUNG CALLED AND NOTIFIED OF THE PATIENTS WISHES. JESSICA IS IN AGREEMENT AND WANTS TO BE MADE AWARE OF ANY CHANGE IN THE PATIENTS CONDITION. PT IS ON THE BIPAP AND VITAL SIGNS ARE STABLE. WILL CONT POC.
[2019-11-25] VITALS (23 sets, daily range): BP systolic 92–153; BP diastolic 67–108
--- NOTE | 2019-11-25 01:00 | NUR ---
PT RESTING. VSS. WILL CONT BIPAP AND POC.
--- NOTE | 2019-11-25 03:00 | NUR ---
REASSESSMENT COMPLETED. VSS. WILL CONT POC
--- NOTE | 2019-11-25 05:00 | NUR ---
PT WEARING BIPAP AND COOPERATVIE. CALL LIGHT IN [facility]. WILL CONT POC.
--- NOTE | 2019-11-25 06:00 | NUR ---
PT REQUESTED TO HAVE WATER AND ICE. REMOVED BIPAP AND APPLIED O2 AT 5 LITERS. INSTRUCTED PT TO DEEP BREATHE. ADMINISTERED AM MEDS AND PROVIDED WATER/ICE PER REQUEST. PT DID NOT TOLERATE BEING OFF BIPAP. 02 DECREASED TO 85 PERCENT. REAPPLIED BIPAP AT 40%. PROVIDED EDUCATION ON THE USE OF EQUIPMENT, AND O2 REQUIREMENTS. PATIENTS STATES "IF I GOTTA WEAR THIS MASK I NEED SOMETHING LIKE XANEX OR MY SOMAS. PROVIDED EDUCATION ABOUT HOW THOSE MEDICATIONS AFFECTED HER BREATHING. REPOSITIONED FOR COMFORT.
--- NOTE | 2019-11-25 19:00 | NUR ---
REPORT REC'D FROM DAY RN, PT'S CARE ASSUMED. ASSESSMENT COMPLETED.SEE FLOWSHEETS FOR ALL FINDIGNS. PT AWAKE AND ALERT X3, C/O DISCOMFORT AT ABD REGION, REPOSITIONED FOR COMFORT, WAGES IN USE FOR SUPPORT. AFIB CONT ON MONITOR WITH HR AT 78. LUNG SOUNDS DIMINISHED TO LLB, UNLABORED ON BIPAP AT 40%FIO2. PPP. CALL LIGHT IN REACH. CONT TO MONITOR.
--- NOTE | 2019-11-25 21:00 | NUR ---
SCHEDULED MEDS GIVEN PER ORDER. PT RUPAL WELL. C/O NAUSEA AFTER TAKING MEDS AND DRINK LACTULOSE. ZOFRAN 4MGIVP GIVEN PER ORDER. CPOC.
--- NOTE | 2019-11-25 23:00 | NUR ---
REASSESSMENT COMPLETED PER FLOWSHEETS. PT RESTING QUIETLY ON BIPAP WITHOUT ANY DISTRESS AT THIS TIME. VSS. CPOC.
[2019-11-26] VITALS (24 sets, daily range): BP systolic 102–138; BP diastolic 67–102
--- NOTE | 2019-11-26 01:00 | NUR ---
PT RESTING QUIETLY WITHOUT DISTRESS. VSS. NO NEEDS VOICES AT THIS TIME. CPOC.
--- NOTE | 2019-11-26 03:00 | NUR ---
REASSESSMENT COMPLETED PER FLOWSHEETS. PT ON BIPAP WITHOUT DISTRESS. VSS. NO ACUTE CHANGES NOTED IN PT'S STATUS AT THIS TIME. CPOC.
--- NOTE | 2019-11-26 04:00 | NUR ---
I&O COMPLETED AND CHARTED TO FLOWSHEET.
--- NOTE | 2019-11-26 12:45 | NUR ---
Nutrition Follow-up: Ate well last night per chart. Experienced nausea overnight after meds and Lactulose. Diet: Regular Wt: 189# (11/25); 180# (11/23); 186.2# (11/21) Last BM: 11/22 per chart Labs noted: Glu 119, Ca 8.0, PO4 2.1, Mg 2.7 Meds noted: Solumedrol, Lactulose, Lasix, Albumin, Zofran, banana bag @ 125 -Encourage PO intake and honor food preferences. -Offer nutrition supplements. -Monitor wt. -RD following.
--- NOTE | 2019-11-26 19:40 | NUR ---
RECEIVED CARE OF PT, ASSESSMENT PER FLOWSHEET. BIPAP MASK IN PLACE, PT LETHARGIC BUT AROUSES TO VOICE, PULLED UP IN BED AND SUPPORTED WITH PILLOWS.
--- NOTE | 2019-11-26 21:55 | NUR ---
PT RESTING IN BED WITH BIPAP MASK IN PLACE, VSS, CONT TO MONITOR.
--- NOTE | 2019-11-26 23:20 | NUR ---
REASSESSMENT PER FLOWSHEET, NO SIGNIFICANT ACUTE CHANGES NOTED AT THIS TIME. SMALL BREAK FOR ORAL CARE DONE, SIGNIFICANT O2 DESAT NOTED EVEN WITH MINIMAL TIME. WILL MONITOR CLOSELY.
[2019-11-27] VITALS (22 sets, daily range): BP systolic 106–142; BP diastolic 85–101
--- NOTE | 2019-11-27 01:50 | NUR ---
ORAL CARE PROVIDED, PT TOLERATED VERY SHORT TIME OFF BIPAP, STILL 60% FIO2.
--- NOTE | 2019-11-27 03:00 | NUR ---
REASSESSMENT PER FLOWSHEET, NO SIGNIFICANT CHANGES NOTED AT THIS TIME. REMAINS SR ON CM, CONT POC.
--- NOTE | 2019-11-27 05:14 | NUR ---
PT RESTING IN BED WITH EYES CLOSED, VSS, CONT POC.
--- NOTE | 2019-11-27 07:23 | NUR ---
PT LYING IN BED RESTING AT THIS TIME, BIPAP IN PLACE. VSS. NO ACUTE DISTRESS NOTED. PT LETHARGIC BUT ORIENTED X 4; ABLE TO ANSWER ALL ORIENTATION QUESTIONS APPROPIATELY. WILL CONTINUE PLAN OF CARE.
--- NOTE | 2019-11-27 09:22 | NUR ---
PER DR ADAM, ORDER LABS THIS AM SINCE PT HAS NOT HAD LABS DRAWN SINCE 11/23. BIPAP IN PLACE. VSS. NO ACUTE DISTRESS NOTED. WILL CONTINUE PLAN OF CARE.
[2019-11-27 09:43] LABS: HEMATOCRIT 41.5 % (42.0-54.0); HEMOGLOBIN 12.3 g/dL (13.5-17.5); MCH 30.1 pg (26.0-34.0); MCHC 29.6 g/dL (31.0-37.0); MCV 101.5 fL (80.0-100.0); MEAN PLATELET VOLUME 9.8 fL (7.4-10.4); RBC 4.09 10x6/uL (4.20-6.10); RDW 15.4 % (11.5-14.5); WBC 9.5 10x3/uL (4.8-10.8)
[2019-11-27 09:46] LABS: PLATELET COUNT 38 10x3/uL (130-400)
[2019-11-27 10:03] LABS: ALBUMIN 2.7 g/dL (3.4-5.0); ALKALINE PHOSPHATASE 377 U/L (30-120); ALT (SGPT) 131 U/L (10-68); BILIRUBIN - TOTAL 3.19 mg/dL (0.2-1.3); CALCIUM 8.1 mg/dL (8.5-10.1); CHLORIDE - SERUM 96 mmol/L (98-107); CREATININE - SERUM 0.5 mg/dL (0.6-1.3); GLUCOSE 105 mg/dL (74-106); POTASSIUM - SERUM 4.9 mmol/L (3.5-5.1); PROTEIN - SERUM 5.2 g/dL (6.4-8.2); UREA NITROGEN 31 mg/dL (7-18); eGFR NON AFRICAN AMERICAN > 90 mL/min (90-120)
[2019-11-27 10:14] LABS: EOSINOPHILS 1 % (0-7); LYMPHOCYTES 15 % (15-50); MONOCYTES 5 % (2-11); NEUTROPHILS 77 % (40-80); PLATELET ESTIMATE DECREASED
[2019-11-27 10:24] LABS: CALC OSMOLALITY 276 mosm/kg (275-300); SODIUM 135 mmol/L (136-145)
[2019-11-27 10:44] LABS: CARBON DIOXIDE 39.4 mmol/L (21.0-32.0)
--- NOTE | 2019-11-27 10:47 | NUR ---
PT REQUESTED SIPS OF WATER, BIPAP REMOVED FOR A FEW MINUTES, 15L HIGH FLOW NC PLACED. INITIALLY OXYGEN SATURATION TRENDED 93% WITH GOOD WAVEFORM TO OXYGEN SAT MONITOR. PT TOLERATED A FEW SIPS OF WATER WITHOUT ANY S/S ASPIRATION. PT THEN REQUESTED A DRINK OF MILK, SIPS OF MILK GIVEN TO PT WITH SOME COUGHING NOTED, HOWEVER WITH PRODUCTIVE SPUTUM OF THICK LIGHT CLEAR. OXYGEN SATURATION DECREASED TO 88% ON 15L HIGH FLOW. BIPAP PLACED BACK TO PT. WILL CONTINUE TO CLOSELY OBSERVE.
--- NOTE | 2019-11-27 11:13 | NUR ---
SPOKE WITH PTS DAUGHTER, UPDATES PROVIDED. NO ACUTE DISTRESS NOTED. WILL CONTINUE PLAN OF CARE
--- NOTE | 2019-11-27 11:25 | NUR ---
NOT TOLERATING PO SIPS OF WATER OF MEDS. PO MEDS HELD. DR ROSS NOTIFIED OF THIS.
--- NOTE | 2019-11-27 11:56 | NUR ---
DR ROSS NOTIFIED OF LOW PLATELET LEVEL AND THAT PT IS UNABLE TO TOLERATE PO MEDS. PHYSICIAN STATED HE WOULD PLACE ORDERS.
--- NOTE | 2019-11-27 12:14 | NUR ---
RESULTS GIVEN TO DR ADAM OVER TELEPHONE VERBAL ORDER FOR PT TO WEAR BIPAP 4 ON AND 4 OFF TOLERATED TO MAINTAIN SPO2>90.
--- NOTE | 2019-11-27 16:06 | NUR ---
CHG BATH PROVIDED AT THIS TIME WITH TOTAL LINEN CHANGE. VSS. NO ACUTE DISTRESS NOTED. WILL CONTINUE PLAN OF CARE.
--- NOTE | 2019-11-27 21:00 | NUR ---
ANSWERED PTS CALL LIGHT REQUESTING SOMETHING TO EAT INFORMED DUE TO BIPAP AND TROUBLE SWALLOWING TODAY NPO NOW
--- NOTE | 2019-11-27 21:02 | NUR ---
PT DAUGHTER, JESSICA CALLED-PASSWORD PROVIDED AND UPDATE GIVEN. ALL QUESTIONS ANSWERED, MESSAGE DELIVERED TO PT PER DAUGHTER REQUEST.
--- NOTE | 2019-11-27 22:46 | NUR ---
ANSWERED CL PT REQUESTING SOMETHING TO EAT OR DRINK INFORMED AGAIN UNABLE TO TOLERATE OFF BIPAP SATS DROPPED TO 80'S AND PT HAD TROUBLE SWALLOWING AND COUGHING AFTER GIVEN WATER TODAY PER DAY SHIFT REPORT
[2019-11-28] VITALS (24 sets, daily range): BP systolic 98–130; BP diastolic 75–97
--- NOTE | 2019-11-28 01:15 | NUR ---
ANSWERED CALL LIGHT PT REQUESTING FOOD AGAIN INFORMED AGAIN OF ASPIRATION AND NPO STATUS ORAL CARE PROVIDED
--- NOTE | 2019-11-28 03:00 | NUR ---
REASSESSMENT COMPLETE CPOC
--- NOTE | 2019-11-28 04:01 | NUR ---
COMPLETE LINEN CHANGE MEPILEX APPLIED TO EXCORIATION ON BUTTOCKS
--- NOTE | 2019-11-28 05:00 | NUR ---
PT WANTS TO GO HOME DOES NOT WANT HOSPICE. WANTS TO GO HOME
[2019-11-28 08:02] LABS: HEMOGLOBIN 11.2 g/dL (13.5-17.5); MCH 30.4 pg (26.0-34.0); MCHC 30.3 g/dL (31.0-37.0); MCV 100.5 fL (80.0-100.0); MEAN PLATELET VOLUME 10.5 fL (7.4-10.4); RBC 3.68 10x6/uL (4.20-6.10); WBC 8.6 10x3/uL (4.8-10.8)
[2019-11-28 08:07] LABS: PLATELET COUNT 46 10x3/uL (130-400)
--- NOTE | 2019-11-28 08:26 | NUR ---
LYING IN BED AT THIS TIME, BIPAP IN PLACE. PT LETHARGIC, HOWEVER ORIENTED X 4, ANSWERS ALL QUESTIONS APPROPIATELY. PT DENIES ANY CURRENT CONCERNS OR NEEDS. VSS. WILL CONTINUE PLAN OF CARE.
[2019-11-28 08:55] LABS: ALBUMIN 2.6 g/dL (3.4-5.0); ALKALINE PHOSPHATASE 324 U/L (30-120); ALT (SGPT) 114 U/L (10-68); BILIRUBIN - TOTAL 3.18 mg/dL (0.2-1.3); CALC OSMOLALITY 279 mosm/kg (275-300); CALCIUM 7.9 mg/dL (8.5-10.1); CHLORIDE - SERUM 97 mmol/L (98-107); CREATININE - SERUM 0.4 mg/dL (0.6-1.3); GLUCOSE 112 mg/dL (74-106); POTASSIUM - SERUM 5.1 mmol/L (3.5-5.1); PROTEIN - SERUM 4.9 g/dL (6.4-8.2); SODIUM 136 mmol/L (136-145); UREA NITROGEN 31 mg/dL (7-18); eGFR NON AFRICAN AMERICAN > 90 mL/min (90-120)
[2019-11-28 08:55] LABS: LYMPHOCYTES 20 % (15-50); MONOCYTES 1 % (2-11); NEUTROPHILS 79 % (40-80); PLATELET ESTIMATE DECREASED
[2019-11-28 08:56] LABS: POIKILOCYTOSIS OCC; POLYCHROMASIA OCC; STOMATOCYTES OCC
[2019-11-28 09:00] LABS: CARBON DIOXIDE 40.2 mmol/L (21.0-32.0)
--- NOTE | 2019-11-28 09:16 | NUR ---
PT OFF THE VENT FOR ABOUT 30 MIN, TOLERATED SIPS OF WATER WITHOUT ANY S/S APIRATION. BIPAP PLACED BACK TO PT, HE STATED HE FELT REALLY TIRED, NURSE ASKED HIM IF HE WANTED HIS BIPAP BACK ON AND HE STATED "YES." VSS. ALSO AT THIS TIME PT TALKED ON PHONE WITH DAUGHTER. UPDATES PROVIDED. WILL CONTINUE PLAN OF CARE.
--- NOTE | 2019-11-28 09:18 | NUR ---
DR ADAM NOTIFIED OF CRITICAL CARBON DIOXIDE LEVELS, STATED TO ORDER ABG.
--- NOTE | 2019-11-28 11:31 | NUR ---
AWAKE SITTING UP IN BED AT THIS TIME TALKING ON PHONE WITH FAMILY. VSS. OXYGEN SATURATION CURRENTLY 92% ON 15L HIGH FLOW NC. PT CURRENTLY TOLERATING SIPS OF WATER, PER DR ADAM, WAITING FOR SPEECH THERAPY TO EVAL BEFORE FEEDING. WILL CONTINUE PLAN OF CARE.
--- NOTE | 2019-11-28 13:01 | NUR ---
PER SPEECH THERAPIST, OKAY FOR PT TO HAVE THIN LIQUIDS AND MECHANICAL SOFT FOOD.
--- NOTE | 2019-11-28 14:33 | NUR ---
CHG BATH OFFERED TO PT, PT REFUSED.
--- NOTE | 2019-11-28 14:43 | NUR ---
PER DR ROSS, DC LACTULOSE. ALSO HAVE PT RECIEVE ENSURE WITH EVERY MEAL.
--- NOTE | 2019-11-28 15:38 | NUR ---
SPOKE WITH MILTON IN RADIOLOGY, STATED HE WILL NOTIFY THE IR PHYSICIAN OF CONSULT.
--- NOTE | 2019-11-28 16:03 | NUR ---
PER DR COLLIER, "HAVE PT NPO AFTER MIDNIGHT FOR THORACENTESIS IN AM. ALSO MAKE SURE TO CHECK PLATELET LEVELS IN AM. WILL WAIT UNTIL POSSIBLY FRIDAY TO DO LIVER BIOPSY."
--- NOTE | 2019-11-28 16:30 | NUR ---
PT GAVE ORAL CONSENT FOR CT GUIDED THORACENTESIS WELL BLOOD IF HE NEEDS IT. HE STATED HE DID NOT WANT TO WRITE HIS CONSENT, HE WANTED TO ONLY GIVE HIS VERBAL CONSENT. HE STATED HE UNDERSTOOD PROCEDURE AND DECLINED AND QUESTIONS OR CONCERNS. THIS WAS WITNESSED BY A SECOND RN, ROSARIO COTTO. VSS. NO ACUTE DISTRESS NOTED. WILL CONTINUE PLAN OF CARE.
--- NOTE | 2019-11-28 16:43 | NUR ---
SITTING UP IN BED EATING SUPPER AT THIS TIME. TOLERATING MEAL WELL WITHOUT ANY S/S OF ASPIRATION. VSS. NO ACUTE DISTRESS NOTED. ALSO CALLED PTS EMERGENCY CONTACT AND PROVIDED UPDATES. WILL CONTINUE PLAN OF CARE.
--- NOTE | 2019-11-28 16:52 | NUR ---
PT ATE 100% SUPPER AND DRANK ALL HIS ENSURE, AND WATER. TOLERATING WELL.
--- NOTE | 2019-11-28 18:12 | NUR ---
UP IN BED WATCHNG TV AT THIS TIME ON HIGH FLOW NC. NO ACUTE DISTRESS NOTED. VSS. WILL CONTINUE PLAN OF CARE.
--- NOTE | 2019-11-28 19:35 | NUR ---
PLACED BACK ON BIPAP SATS IN MID 80'S
--- NOTE | 2019-11-28 20:00 | NUR ---
ANSWERED PTS CALL LIGHT WANTING BIPAP BACK OFF INFORMED WOULD NEED TO KEEP ON FOR SINCE HIS SATS HAD DROPPED TO 80'S. NOW O2 SATS 94% CPOC
--- NOTE | 2019-11-28 23:40 | NUR ---
BIPAP ALARMING PT HAS REMOVED SATS DOWN TO 84% PLACED BIPAP BACK ON
[2019-11-29] VITALS (28 sets, daily range): BP systolic 97–155; BP diastolic 69–116
--- NOTE | 2019-11-29 02:30 | NUR ---
ANSWERED PTS CALL LIGHT PT WANTING SOMETHING TO DRINK INFORMED AGAIN COULDNT DUE TO PROCEDURE IN AM.
[2019-11-29 03:21] LABS: BASOPHILS 1.3 % (0-2); EOSINOPHILS 1.5 % (0-7); HEMATOCRIT 35.6 % (42.0-54.0); IMMATURE GRANULOCYTES 7.5 % (0-5); LYMPHOCYTES 29.1 % (15-50); MCH 30.2 pg (26.0-34.0); MCHC 30.9 g/dL (31.0-37.0); MONOCYTES 6.8 % (2-11); NEUTROPHILS 53.8 % (40-80); RBC 3.64 10x6/uL (4.20-6.10); RDW 14.7 % (11.5-14.5); WBC 10.4 10x3/uL (4.8-10.8)
[2019-11-29 03:36] LABS: ALBUMIN 2.6 g/dL (3.4-5.0); ALKALINE PHOSPHATASE 371 U/L (30-120); ALT (SGPT) 130 U/L (10-68); BILIRUBIN - TOTAL 3.16 mg/dL (0.2-1.3); CALC OSMOLALITY 274 mosm/kg (275-300); CALCIUM 8.2 mg/dL (8.5-10.1); CHLORIDE - SERUM 96 mmol/L (98-107); CREATININE - SERUM 0.5 mg/dL (0.6-1.3); GLUCOSE 109 mg/dL (74-106); PROTEIN - SERUM 5.4 g/dL (6.4-8.2); SODIUM 134 mmol/L (136-145); UREA NITROGEN 30 mg/dL (7-18); eGFR NON AFRICAN AMERICAN > 90 mL/min (90-120)
[2019-11-29 03:54] LABS: MCV 97.8 fL (80.0-100.0)
[2019-11-29 03:57] LABS: CARBON DIOXIDE 43.1 mmol/L (21.0-32.0); PLATELET COUNT 41 10x3/uL (130-400)
--- NOTE | 2019-11-29 06:20 | NUR ---
CALLED [facility] RESP THERAPIST INFORMED PTS SATS ON HFNC DOWN TO 84%. SHE CHECKED WITH O2 SAT PER PORTABLE 92% AND INFORMED PT THAT IF HE DOESNT TAKE DEEP BREATHS WILL HAVE TO BE PLACED BACK ON BIPAP CPOC
--- NOTE | 2019-11-29 07:35 | NUR ---
0700 BEDSIDE ROPORT RECEIVED FROM OUTGOING CURRICULUM DEVELOPMENT MANAGER COMPLETE PT ASLEEP EASILY AWAKENED
--- NOTE | 2019-11-29 10:12 | NUR ---
Nutrition follow-up: Diet: Regular mechanical soft with thin liquids; Ensure TID PO intake last eveing 100% of meal Labs reviewed BIPAP continuous at night; 4 hours BID on/off during the day labs reivewed Wt: 198# RDN following.
--- NOTE | 2019-11-29 10:56 | NUR ---
102 DR LIM CALLED ABNORMAL LABS RESULTS REPORTED
--- NOTE | 2019-11-29 10:58 | NUR ---
1040 STAT LAB DRAWN REQUESTED BY DR BRAVO
--- NOTE | 2019-11-29 10:59 | NUR ---
1050 DR VENTURA ROUNDED ON PATIENT
[2019-11-29 11:01] LABS: APTT 33.8 SECONDS (22.8-39.4); INR 1.22 (0.85-1.17); PROTIME 15.3 SECONDS (11.6-15.0)
--- NOTE | 2019-11-29 14:52 | NUR ---
PT RECIEVED FROM IR VSS DENIES PAIN, WILL CONTINUE TO MONITOR
--- NOTE | 2019-11-29 14:54 | NUR ---
1325 TRANSPORTED TO IR FOR PROCEEDURE
--- NOTE | 2019-11-29 14:54 | NUR ---
1415 REPORT CALLED TO YOBANI IN CVICU PT WILL TRANSFE TO CV ROOM1 1
--- NOTE | 2019-11-29 15:20 | NUR ---
1520 RETURNED FROM [facility]. RAN TAKING OVER HIS CARE
[2019-11-29 15:21] LABS: PROTEIN - BODY FLUID 1.1 G/DL
[2019-11-29 16:04] LABS: MACROPHAGES BF 18 %; MESOTHELIALS BF 2 %; NEUT - BF 5 %
--- NOTE | 2019-11-29 17:16 | NUR ---
1430 PT RECIEVED FROM IR ALERT AND ORIENTED ON 15L O2 L LAT CHEST DRESSING WITH SOME BLOODY DRAINAGE PRESENT, IR AWARE STATED TO CHANGE NEEDED, VSS DENIES ALL NEEDS 1630 PLACED ON BIPAP BY RT AFTER EATING PUDDING DUE TO SPO2 88% REPOSITIONED Q2 HOURS AND PRN
--- NOTE | 2019-11-29 18:18 | NUR ---
1600 DRESSING CHANGED DUE TO SATURATION 1800 DRESSING REINFORCED DUE TO SATURATION 1815 DRESSING CONTINUES TO HAVE BLOODY DRAINAGE SATURATING, DR NEGRO CAD DESIGNER DRAFTER, PAGED.
--- NOTE | 2019-11-29 18:22 | NUR ---
SPOKE WITH DR NEGRO, STATED TO CHANGE DRESSING NEEDED AND NO NEW ORDERS
--- NOTE | 2019-11-29 19:58 | NUR ---
REPORT RECIEVED FROM THE OFF GOING RN. SEE ASSESSMENT IN THE PTS FLOW SHEET. PT LYING IN BED WITH HIS BIPAP ON AT 60%. LEFT POSTERIOR CHEST DRESSING INTACT WITH BLOODY DRAINAGE NOTED. DRESSING REENFORCED WITH 4X4'S. NSR ON THE MONITOR. VSS AT THIS TIME. PT DENIES PAIN. CALL LIGHT IN REACH. WILL CONT POC.
--- NOTE | 2019-11-29 21:57 | NUR ---
LEFT POSTERIOR CHEST THOROCENTESIS SITE SATURATED IN BLOOD EVEN AFTER REINFORMENT BANDAGE. DRESSING CHANGED. CONSTANT BLOODY OOZ NOTED FROM INCISION. DR NEGRO KIT PLANNER AND NOTIFIED. GIVE 1 UNIT OF PLATLENTS AND CHECK CBC.
--- NOTE | 2019-11-29 22:00 | NUR ---
AMADO CEBALLOS PAGED RT GIVING THE PT PLATLETS.
--- NOTE | 2019-11-29 22:00 | NUR ---
PO MEDS GIVE. PT TOLERATING OFF THE BIPAP SO FAR. 15L VIA HIGH FLOW O2. PTS DINNER PROVIDED. WILL CONT POC.
--- NOTE | 2019-11-29 23:00 | NUR ---
REASSESSMENT COMPLETED SEE FLOW SHET. WILL CONT POC.
--- NOTE | 2019-11-29 23:02 | NUR ---
PT PLACED BACK ON HIS BIPAP.
--- NOTE | 2019-11-29 23:30 | NUR ---
SPOKE WITH AMADO CEBALLOS ABOUT GIVING PLATLETS. OK TO PROCEED WITH TX.
--- NOTE | 2019-11-29 23:45 | NUR ---
PLATLETS VERIFIED WITH ANOTHER NURSE. CONSENT IN THE CHART SIGNED. PLATLETS INITIATED.
[2019-11-30] VITALS (29 sets, daily range): BP systolic 98–125; BP diastolic 54–93
--- NOTE | 2019-11-30 00:25 | NUR ---
PT REQUESTED THAT HIS BIPAP BE TAKEN OFF. IT WAS AND PT PLACED ON 15L VIA HIGH FLOW. VSS. WILL CONT POC.
--- NOTE | 2019-11-30 01:11 | NUR ---
PLATLET TRANSFUSION COMPLETED. NO S/SX OF REACTION NOTED. PT ASKED TO BE PUT BACK ON HIS BIPAP. PT ON BIPAP AT 60%. WILL CONT POC.
[2019-11-30 01:59] LABS: BASOPHILS 0.7 % (0-2); EOSINOPHILS 1.5 % (0-7); HEMATOCRIT 33.6 % (42.0-54.0); HEMOGLOBIN 10.2 g/dL (13.5-17.5); IMMATURE GRANULOCYTES 7.9 % (0-5); MCHC 30.4 g/dL (31.0-37.0); MCV 98.8 fL (80.0-100.0); NEUTROPHILS 57.9 % (40-80); RDW 15.1 % (11.5-14.5); WBC 9.9 10x3/uL (4.8-10.8)
[2019-11-30 02:01] LABS: PLATELET COUNT 92 10x3/uL (130-400)
[2019-11-30 02:09] LABS: INR 1.24 (0.85-1.17); PROTIME 15.5 SECONDS (11.6-15.0)
[2019-11-30 02:36] LABS: ALBUMIN 2.8 g/dL (3.4-5.0); ALKALINE PHOSPHATASE 322 U/L (30-120); ALT (SGPT) 134 U/L (10-68); BILIRUBIN - TOTAL 3.54 mg/dL (0.2-1.3); CALC OSMOLALITY 273 mosm/kg (275-300); CALCIUM 8.1 mg/dL (8.5-10.1); CHLORIDE - SERUM 93 mmol/L (98-107); CREATININE - SERUM 0.5 mg/dL (0.6-1.3); GLUCOSE 152 mg/dL (74-106); POTASSIUM - SERUM 4.6 mmol/L (3.5-5.1); PROTEIN - SERUM 5.5 g/dL (6.4-8.2); SODIUM 133 mmol/L (136-145); UREA NITROGEN 26 mg/dL (7-18); eGFR NON AFRICAN AMERICAN > 90 mL/min (90-120)
[2019-11-30 02:40] LABS: CARBON DIOXIDE 42.7 mmol/L (21.0-32.0); LDH 2256 U/L (85-227)
--- NOTE | 2019-11-30 04:02 | NUR ---
LEFT POSTERIOR CHEST SATURATED IN BLOOD. DRESSING CHANGED. CONSTANT OOZ NOTED FROM THOROCENTESIS SITE. CHEST WALL BOGGY. AMADO CEBALLOS NOTIFIED. GET XRAY NOW AND DEFER TO RADIOLOGY.
--- NOTE | 2019-11-30 07:59 | NUR ---
MEAL TRAY DELIVERED AND SET UP. PT PLACED ON 15L HFNC. ATE ABOUT 10% OF FOOD. DID NOT TOLERATE BEING OFF BIPAP. DESATED INTO 80S. PLACED BACK ON BIPAP AT 60%. O2 SAT INCREASED TO 94%. NO FURTHER NEEDS AT THIS TIME. WILL CONTINUE TO MONITOR.
--- NOTE | 2019-11-30 09:26 | NUR ---
OFF BIPAP TO TAKE ORAL MEDS. DOES NOT TOLERATE BEING OFF BIPAP. O2 SAT DROPPED TO 85%. PLACED BACK ON BIPAP AT 60%.
--- NOTE | 2019-11-30 09:49 | NUR ---
CONTINUES TO BLEED AT THORACENTESIS SITE. JJ ESPINOZA RN WITH IR NOTIFIED.
--- NOTE | 2019-11-30 11:08 | NUR ---
DRESSING ON LEFT LATERAL CHEST SATURATED. CHANGED AT THIS TIME. 4X4'S SECURED WITH MICROFOAM TAPE. OFF BIPAP AT THIS TIME. ON 15L HFNC. WILL CONTINUE TO MONITOR.
--- NOTE | 2019-11-30 11:52 | NUR ---
DR. MAYNARD AT BEDSIDE.
--- NOTE | 2019-11-30 12:54 | NUR ---
BIPAP OFF APPROX 10MIN TO GIVE PO MEDS. O2 SAT DROPPED TO 86%. BIPAP PLACED BACK ON. UNABLE TO STAY OFF BIPAP FOR MEAL TIME. WILL CONTINUE TO MONITOR.
--- NOTE | 2019-11-30 14:15 | NUR ---
IR IN ROOM. STITCH APPLIED TO LEFT POSTERIOR CHEST AT THORACENTESIS SITE. 4X4'S APPLIED OVER SITE, SECURED WITH MICROFOAM TAPE. PT RESTING COMFORTABLY. NO FURTHER NEEDS AT THIS TIME. WILL CONTINUE TO MONITOR.
--- NOTE | 2019-11-30 14:53 | NUR ---
PHONE CALL RECEIVED FROM JESSICA PT'S DAUGHTER. BRIEF UPDATE GIVEN. WILL ATTEMPT TO VIDEO CHAT WITH PT TOMORROW IF PT CAN TOLERATE IT.
--- NOTE | 2019-11-30 17:16 | NUR ---
OFF BIPAP AT THIS TIME FOR MEAL TIME. PLACED ON 15L HIGH FLOW NC.
--- NOTE | 2019-11-30 17:35 | NUR ---
O2 SAT 85%. PLACED BACK ON BIPAP. NO BLEEDING NOTED AT LEFT POSTERIOR CHEST SITE. NO FURTHER NEEDS AT THIS TIME.
[2019-12-01] VITALS (26 sets, daily range): BP systolic 91–125; BP diastolic 49–89
--- NOTE | 2019-12-01 02:30 | NUR ---
ASSUMED CARE OF PT. BEDSIDE REPOST RECIEVED. PT AWAKE ALERT WATCHING TV. ASSESSMENT COMPLETED. ASSISTED PT IN REPOSITIONING. PT ABLE TO SIT UP WITH MINIMAL ASSISTANCE FROM THIS RN. DRESSING TO LT LATERAL CHEST CDI. VSS
--- NOTE | 2019-12-01 04:00 | NUR ---
RADIOLOGY AT BEDSIDE FOR CXR. PT TOLERATED WELL. DENIES ANY NEEDS AT THIS TIME.
--- NOTE | 2019-12-01 05:00 | NUR ---
PROVIDED BACK MASSAGE AND BACK SCRATCH FOR COMFORT.
[2019-12-01 10:09] LABS: FUNGUS STAIN Final report (())
--- NOTE | 2019-12-01 10:38 | NUR ---
Nutrition Follow-up: Pt has not been eating well overall but observed large portion of breakfast eaten this AM. On Procal @ 75. Diet: Regular, Mech Soft, Ensure TID PO intake: 0-30% yesterday Wt: 173# (11/30); 198# (11/28); 202.8# (11/26); 186.2# (11/21); 164# (11/18) Last BM: 11/22 per chart Labs noted: Glu 201 Meds noted: Solumedrol, Lasix, Albumin, electrolyte protocol -Encourage PO intake and honor food preferences within diet restrictions. -Pt may benefit from appetite stimulant, as well as GI motility agent (last recorded BM 11/22). -If PO intake remains poor overall, rec may consider more substantial nutrition support (TF; functional GI tract). -Monitor wt. -RD following.
--- NOTE | 2019-12-01 16:22 | MORECARE ---
CASE MANAGEMENT DISCHARGE SUMMARY PATIENT: LANRE DINH UNIT: [id number] ADM DATE: 11/19/19 AGE: 59 : 60 SEX: M ROOM/BED: D.08 AUTHOR: MANNY,DOC PHYSICIAN: REFERRING PHYSICIAN: JANIE PRIEST MD DATE OF SERVICE: 12/01/19 Discharge Plan Patient Name: LANRE DINH Facility: [facility]:[place] : 1960 Planned Disposition: Home Anticipated Discharge Date: Discharge Date: Expected LOS: Initial Reviewer: [email or web address] Initial Review Date: 11/23/2019 Generated: 12/01/19 5:21 pm DCP- Discharge Planning Updated by [email or web address]: Polina Mcgrath on 11/23/19 4:[address] Patient Name: LANRE DINH Admission Status: ER Accout number: [id number] Admission Date: 11-19-2019 : 1960 Admission Diagnosis:PNEUMONIA, UNSPECIFIED ORGANISM Attending: CEM, Current LOS: 4 Anticipated DC Date: Planned Disposition: Home Primary Insurance: MEDICAID [place] Discharge Planning Comments: CM called and spoke with patient's daughter to complete initial dc planning assessment. CM educated patient's daughter on the CM role and verbal consent given by patient to complete assessment. Patient lived at home with family where he was independent with his care. At discharge patient's daughter plans on him discharging to her home. ([facility] [place] [address]) CM discussed availability of home health, rehab services, and medical equipment. He has been using home 02 concentrator (unknown if it was his or someone else's).He has a nebulizer that he was taking albuterol updrafts more often than ordered per daughter. SHIRIN for no preference on Home health company if needed. [facility] medical equipment. for 02 needs. He will need walk test if 02 is required at discharge. Patient's daughter denied known discharge needs at this time. CM will continue to follow and will assist as needed with dc plans/needs. Galley Worker: Polina Mcgrath DCPIA - Discharge Planning Initial Assessment Updated by [id number]: Polina Mcgrath on 11/23/19 5:19 pm * PCP AMINAH BRADY * Pharmacy [facility] - * Preadmission Environment Home with Family * ADLs Independent * Other Equipment 02 concentrator, nebulizer * List name and contact numbers for known caregivers / representatives who currently or will assist patient after discharge: Marilin Iniguez -daughter POA - [phone] Shirin Dinh - son - [phone] * Verbal permission to speak to the caregivers and representatives has been obtained from the patient. N/A * Community resources currently utilized None * Additional services required to return to the preadmission environment? No * Can the patient safely return to the preadmission environment? Yes * Has this patient been hospitalized within the prior 30 days at any hospital? No External Providers External Provider: [facility] *(provides inpt [facility] Next Contact Date: Service Request Date: Service Type: Resolution: Reviewer: Comments: Last DP export: 11/23/19 4:27 p Patient Name: LNARE DINH Page [phone] at 1622 All edits/amendments must be made on the electronic document DICTATION DATE: 12/01/191620 ADMIN ASST: PATO 12/01/191620 RPT#: [id number] DC DATE: STATUS: ADM IN [facility] [address] [place] [address] END OF REPORT
--- NOTE | 2019-12-01 19:00 | NUR ---
REPORT RECEVIED FROM THE OFF GOING RN. SEE ASSESSMENT IN THE PTS FLOW SHEET. PT RESTING WITH NO COMPLAINTS. PT REQUEST TO BE PUT ON HIS BIPAP. VSS. CALL LIGHT IN REACH. WILL CONT POC.
--- NOTE | 2019-12-01 19:18 | MORECARE ---
CASE MANAGEMENT DISCHARGE SUMMARY PATIENT: LANRE DINH UNIT: [id number] ADM DATE: 11/19/19 AGE: 59 : 60 SEX: M ROOM/BED: D.2304 AUTHOR: MANNY,DOC PHYSICIAN: REFERRING PHYSICIAN: JANIE PRIEST MD DATE OF SERVICE: 12/01/19 Discharge Plan Patient Name: LANRE DINH Facility: [facility]:[place] : 1960 Planned Disposition: Home Anticipated Discharge Date: Discharge Date: Expected LOS: Initial Reviewer: [email or web address] Initial Review Date: 11/23/2019 Generated: 12/01/19 8:18 pm Comments DCP- Discharge Planning Updated by [email or web address]: Polina Mcgrath on 12/01/19 6:[address] CM notified that patient and family are now [facility] [address] [place] [address], . SHIRIN completed for any Hospice in [facility]. CM contacted [facility] because they have an office that covers the area. Neil came and evaluated patient and he is inpatient appropriate but the daughter wants him home with her. Neil stated he would be back in am to get legal signed then contact the other office regarding DME needs. Patient will need to transported via ambulance to home. Patient should discharge to Hospice in am. DCP- Discharge Planning Updated by [email or web address]: Polina Mcgrath on 11/23/19 4:[address] Patient Name: LANRE DINH Admission Status: ER Accout number: [id number] Admission Date: 11-19-2019 : 1960 Admission Diagnosis:PNEUMONIA, UNSPECIFIED ORGANISM Attending: CEM, Current LOS: 4 Anticipated DC Date: Planned Disposition: Home Primary Insurance: MEDICAID [place] Discharge Planning Comments: CM called and spoke with patient's daughter to complete initial dc planning assessment. CM educated patient's daughter on the CM role and verbal consent given by patient to complete assessment. Patient lived at home with family where he was independent with his care. At discharge patient's daughter plans on him discharging to her home. ([address] [place] [address]) CM discussed availability of home health, rehab services, and medical equipment. He has been using home 02 concentrator (unknown if it was his or someone else's).He has a nebulizer that he was taking albuterol updrafts more often than ordered per daughter. SHIRIN for no preference on Home health company if needed. [facility] medical equipment. for 02 needs. He will need walk test if 02 is required at discharge. Patient's daughter denied known discharge needs at this time. CM will continue to follow and will assist as needed with dc plans/needs. Transmission Operator: Polina Mcgrath DCPIA - Discharge Planning Initial Assessment Updated by [id number]: Polina Mcgrath on 11/23/19 5:19 pm * PCP AMINAH BRADY * Pharmacy [facility] - * Preadmission Environment Home with Family * ADLs Independent * Other Equipment 02 concentrator, nebulizer * List name and contact numbers for known caregivers / representatives who currently or will assist patient after discharge: Marilin Iniguez -daughter POA - [phone] Shirin Dinh - son - [phone] * Verbal permission to speak to the caregivers and representatives has been obtained from the patient. N/A * Community resources currently utilized None * Additional services required to return to the preadmission environment? No * Can the patient safely return to the preadmission environment? Yes * Has this patient been hospitalized within the prior 30 days at any hospital? No Last DP export: 12/01/19 3:22 p Patient Name: LANRE DINH Page 18994 at 1918 All edits/amendments must be made on the electronic document DICTATION DATE: 12/01/191917 CREMATORIUM OPERATOR: PATO 12/01/191917 RPT#: [id number] GIAN DATE: STATUS: ADM IN [facility] [address] [place] [address] END OF REPORT
--- NOTE | 2019-12-01 21:35 | NUR ---
PO MEDS TAKEN WITH NO ISSUES. PT PLACED BACK ON HIS BIPAP. VSS. WILL CONT POC.
--- NOTE | 2019-12-01 23:00 | NUR ---
REASSESSMENT COMPLETED. PT REQUEST SOME WATER. IT WAS PROVIDED. PT SHOWS NO S/SX OF DYSPAGIA. PT BACK ON HIS BIPAP. WILL CONT POC.
[2019-12-02] VITALS (10 sets, daily range): BP systolic 93–130; BP diastolic 40–98
--- NOTE | 2019-12-02 00:24 | NUR ---
JESSICA CALLED. PASSWORD GIVEN FROM HER AND UPDATE PROVIDED.
--- NOTE | 2019-12-02 03:00 | NUR ---
REASSESSMENT COMPLETED. SEE FLOW SHEET. VSS AT THIS TIME. PT DENIES NEEDS. WILL CONT POC.
[2019-12-02 03:42] LABS: ALBUMIN 2.6 g/dL (3.4-5.0); ALKALINE PHOSPHATASE 369 U/L (30-120); ALT (SGPT) 146 U/L (10-68); AMYLASE - SERUM 113 U/L (25-115); BILIRUBIN - TOTAL 4.61 mg/dL (0.2-1.3); CHLORIDE - SERUM 93 mmol/L (98-107); CREATININE - SERUM 0.5 mg/dL (0.6-1.3); LIPASE 498 U/L (73-393); PROTEIN - SERUM 5.2 g/dL (6.4-8.2); SODIUM 133 mmol/L (136-145); UREA NITROGEN 25 mg/dL (7-18); eGFR NON AFRICAN AMERICAN > 90 mL/min (90-120)
[2019-12-02 04:08] LABS: EOSINOPHILS 1.8 % (0-7); HEMATOCRIT 27.4 % (42.0-54.0); HEMOGLOBIN 8.6 g/dL (13.5-17.5); LYMPHOCYTES 21.7 % (15-50); MCH 30.3 pg (26.0-34.0); MCHC 31.4 g/dL (31.0-37.0); MCV 96.5 fL (80.0-100.0); MEAN PLATELET VOLUME 9.8 fL (7.4-10.4); MONOCYTES 7.2 % (2-11); NEUTROPHILS 60.3 % (40-80); RBC 2.84 10x6/uL (4.20-6.10)
[2019-12-02 04:13] LABS: PLATELET COUNT 58 10x3/uL (130-400); PLATELET ESTIMATE DECREASED
[2019-12-02 04:15] LABS: CALC OSMOLALITY 269 mosm/kg (275-300); GLUCOSE 98 mg/dL (74-106)
[2019-12-02 04:16] LABS: CARBON DIOXIDE 42.9 mmol/L (21.0-32.0)
--- NOTE | 2019-12-02 06:26 | NUR ---
PT REQUESTED A BEDPAN. PT HAD A SMALL FORMED BM. FULL BEDBATH GIVEN AND LINEN CHANGED. PT BECAME SOB AND HAD TO BE PUT ON HIS BIPAP. VSS AT THIS TIME. WILL CONT POC.
[2019-12-02] MEDS ORDERED: BROVANA15 MCG/2 M INH (12:11)
[2019-12-02] MEDS ORDERED: FEXOFENADINE HC60 MG PO (12:11)
[2019-12-02] MEDS ORDERED: ATROVENT 0.02%2.5 ML UPD (12:11)
[2019-12-02] MEDS ORDERED: TESSALON PERLE100 MG PO (12:12)
[2019-12-02] MEDS ORDERED: AMIODARONE HCL200 MG PO (12:12)
[2019-12-02] MEDS ORDERED: LASIX40 MG PO (12:12)
[2019-12-02] MEDS ORDERED: LANOXIN125 MCG PO (12:12)
[2019-12-02] MEDS ORDERED: ALDACTONE100 MG PO (12:12)
[2019-12-02] MEDS ORDERED: MUCINEX600 MG PO (12:13)
[2019-12-02] MEDS ORDERED: PULMICORT0.5 MG/21 UPD (12:13)
--- NOTE | 2019-12-02 17:28 | NUR ---
TRANSFERRED VIA STRETCHER AND VIA AMBULANCE TO HOME IN [place], [place], OXYGEN PORTABLE HF NC IN USE, AAO, NO SIGNS OF DISTRESS
[2019-12-03 10:09] LABS: IMMUNOGLOBULIN E QNS IU/mL (())
--- NOTE | 2019-12-03 12:20 | MORECARE ---
CASE MANAGEMENT DISCHARGE SUMMARY PATIENT: LANRE DINH UNIT: [id number] ADM DATE: 11/19/19 AGE: 59 : 60 SEX: M ROOM/BED: D.2304 AUTHOR: MANNY,DOC PHYSICIAN: REFERRING PHYSICIAN: JANIE PRIEST MD DATE OF SERVICE: 12/03/19 Discharge Plan Patient Name: LANRE DINH Facility: [facility]:[place] : 1960 Planned Disposition: Home Anticipated Discharge Date: Discharge Date: 12/02/2019 Expected LOS: Initial Reviewer: [email or web address] Initial Review Date: 11/23/2019 Generated: 12/03/19 1:19 pm Comments DCP- Discharge Planning Updated by [email or web address]: Polina Mcgrath on 12/01/19 6:[address] CM notified that patient and family are now wanting home hospice set up at [address] [address], . SHIRIN completed for any Hospice in [facility]. CM contacted [facility] because they have an office that covers the area. Neil came and evaluated patient and he is inpatient appropriate but the daughter wants him home with her. Neil stated he would be back in am to get legal signed then contact the other office regarding DME needs. Patient will need to transported via ambulance to home. Patient should discharge to Hospice in am. DCP- Discharge Planning Updated by [email or web address]: Polina Mcgrath on 11/23/19 4:[address] Patient Name: LANRE DINH Admission Status: ER Accout number: [id number] Admission Date: 11-19-2019 : 1960 Admission Diagnosis:PNEUMONIA, UNSPECIFIED ORGANISM Attending: CEM, Current LOS: 4 Anticipated DC Date: Planned Disposition: Home Primary Insurance: MEDICAID [place] Discharge Planning Comments: CM called and spoke with patient's daughter to complete initial dc planning assessment. CM educated patient's daughter on the CM role and verbal consent given by patient to complete assessment. Patient lived at home with family where he was independent with his care. At discharge patient's daughter plans on him discharging to her home. [address] [place] [place] [address]) CM discussed availability of home health, rehab services, and medical equipment. He has been using home 02 concentrator (unknown if it was his or someone else's).He has a nebulizer that he was taking albuterol updrafts more often than ordered per daughter. SHIRIN for no preference on Home health company if needed. SHIRIN [facility] medical equipment. for 02 needs. He will need walk test if 02 is required at discharge. Patient's daughter denied known discharge needs at this time. CM will continue to follow and will assist as needed with dc plans/needs. Sign Erector: Polina Mcgrath DCPIA - Discharge Planning Initial Assessment Updated by [email or web address]: Polina Mcgrath on 11/23/19 5:19 pm * PCP AMINAH BRADY * Pharmacy [facility] - * Preadmission Environment Home with Family * ADLs Independent * Other Equipment 02 concentrator, nebulizer * List name and contact numbers for known caregivers / representatives who currently or will assist patient after discharge: Marilin Iniguez -daughter POA - [phone] Shirin Dinh - son - [phone] * Verbal permission to speak to the caregivers and representatives has been obtained from the patient. N/A * Community resources currently utilized None * Additional services required to return to the preadmission environment? No * Can the patient safely return to the preadmission environment? Yes * Has this patient been hospitalized within the prior 30 days at any hospital? No Last DP export: 12/01/19 6:18 p Patient Name: LANRE DINH Page [id number] at 1220 All edits/amendments must be made on the electronic document DICTATION DATE: 12/03/19 1219 GENERAL INTERNAL MEDICINE DOCTOR: PATO 12/03/19 1219 RPT#: [id number] DC DATE:12/02/19 STATUS: DIS IN [facility] [address] [place] [address] END OF REPORT
== END 2019-12-02 17:30 | disposition home health service (06) | DRG 871 ==
LOC: D.ER 16:49 → D.M2 18:05 → D.ICU 18:05 → D.CVICU 11-29 14:19 → D.ICU 12-01 17:15
PROVIDERS: Family Medicine; Family Medicine Adult Medicine; General Practice; Internal Medicine Gastroenterology; Internal Medicine Nephrology; Internal Medicine Pulmonary Disease; Radiology Diagnostic Radiology; Specialist; ADMIT Family Medicine; ATTEND Family Medicine
PROC: 5A09457 Assistance with Respiratory Ventilation, 24-96 Consecutive Hours, Continuous Positive Airway Pressure (ICD-10-PCS; 2019-11-21)
PROC: 0W9G3ZZ Drainage of Peritoneal Cavity, Percutaneous Approach (ICD-10-PCS; principal; 2019-11-22 11:08)
PROC: 0W9B3ZZ Drainage of Left Pleural Cavity, Percutaneous Approach (ICD-10-PCS; 2019-11-29)
DX: A41.9 Sepsis, unspecified organism (principal); J18.9 Pneumonia, unspecified organism; I50.23 Acute on chronic systolic (congestive) heart failure; J96.20 Acute and chronic respiratory failure, unspecified whether with hypoxia or hypercapnia; J96.22 Acute and chronic respiratory failure with hypercapnia; J96.21 Acute and chronic respiratory failure with hypoxia; F17.203 Nicotine dependence unspecified, with withdrawal; E87.1 Hypo-osmolality and hyponatremia; R18.8 Other ascites; N39.0 Urinary tract infection, site not specified; N17.9 Acute kidney failure, unspecified; Z66 Do not resuscitate; R00.0 Tachycardia, unspecified; R16.0 Hepatomegaly, not elsewhere classified; I11.0 Hypertensive heart disease with heart failure; I48.91 Unspecified atrial fibrillation; D69.6 Thrombocytopenia, unspecified; J43.9 Emphysema, unspecified; G72.89 Other specified myopathies